=== PATIENT | female | born 1965 | race Caucasian/White ===

== ENCOUNTER 2023-05-30 15:02 | Emergency (ER) | payer SELFPAY ==
[2023-05-30 15:07] VITALS: BP 137/83
--- NOTE | 2023-05-30 15:35 | ED.GENMED ---
History of Present Illness
General
Chief Complaint: Abdominal Pain
Source: patient
Exam Limitations: none
Time Seen by Provider: 05/30/23 15:30
Travel History
Have you had any contact with someone who has COVID-19?: No
Do you have any symptoms of coronavirus? Fever > 100 degrees, chills, cough, shortness of breath, sore throat, loss of taste or smell, muscle aches, or headache?: No
History of Present Illness
History of Present Illness:
Patient presents to the emergency department with lower abdominal pain. Pain is central and radiates to the lower back. Pain started this morning upon waking up. There is no associated urinary symptoms. Feels chills but no fever. No nausea or
vomiting. No constipation or diarrhea. No vaginal discharge or bleeding. Had a similar episode in March that self resolved.
Past History
Past History
ED Past Medical History: None; Negative Cancer, CHF or COPD
ED Past Surgical History: None
Social History
Tobacco: Non-smoker
Alcohol: None
Drug: None
Personal:
Living: with family
Employment: Employed
Family History
Family History: CAD
Phy Exam
Physical Exam
Physical Exam:
GENERAL APPEARANCE: NAD, well developed/ well nourished
EYES lids/conjunctiva normal
EARS/NOSE/THROAT Mucous membranes moist, uvula midline without oral pharyngeal erythema, exudate or swelling
HEAD/NECK normocephalic atraumatic, neck is supple.
RESPIRATORY respiratory effort normal, speaks in full sentences, no accessory muscle use. Lungs clear to auscultation without rhonchi, wheezes, rales
CARDIAC Regular rate and rhythm, no edema.
ABDOMINAL Soft, moderate tenderness to mid lower abdomen. No pulsatile masses on exam, rebound tenderness, Gaming sign or pain over Mcburney's point.
MUSCLES/EXTREMITIES No abnormal range of motion, no swelling.
SKIN Warm, pink and dry. No rashes
NEUROLOGICAL Speech is clear and appropriate. Normal level of consciousness. 5/5 strength in all extremities.
PSYCH Normal mood and affect. Judgement/competence is appropriate
Course
Orders/Labs/Results
Orders:
Orders
05/30/23 16:02
Complete Blood Count/With Diff Urgent
Comprehensive Metabolic Panel Urgent
Lipase Urgent
05/30/23 16:03
Urinalysis Reflex To Culture Urgent
Date Specimen was Collected: 05/30/23
Time Specimen was Collected: 16:02
05/30/23 16:14
CT Abd/pelvis W Iv Cont Urgent
Comment:
Reason For Exam: lower abdominal pain
05/30/23 16:16
0.9% Sodium Chloride 1000 ml [Nss] 1,000 ml IV BOLUS
05/30/23 19:01
MetroNIDAZOLE [Flagyl] 500 mg PO NOW STA
05/30/23 19:02
Ciprofloxacin HCl [Cipro] 500 mg PO ONCE ONE
Abnormal Lab Results
05/30/23 05/30/23
16:02 16:03
WBC 12.1 H 10^3/uL
(4.8-10.8)
Absolute Neuts (auto) 9.6 H 10^3/uL
(1.4-6.5)
Absolute Monos (auto) 1.0 H 10^3/uL
(0.1-0.6)
Neutrophils % 79.4 H %
(42.2-75.2)
Lymphocytes % 11.7 L %
(20.5-51.1)
Sodium 132 L mmol/L
(135-145)
Carbon Dioxide 20 L mmol/L
(22-30)
Urine Ketones 3+ A
(Negative)
05/30/23 16:02
05/30/23 16:02
Vital Signs
Initial and Last Documented VS:
Initial Vital Signs
Temp Pulse Resp BP Pulse Ox
98.7 F 97 16 137/83 99
05/30/23 15:07 05/30/23 15:07 05/30/23 15:07 05/30/23 15:07 05/30/23 15:07
Last Documented Vital Signs
Temp Pulse Resp BP Pulse Ox
98.7 F 97 16 137/83 99
05/30/23 15:07 05/30/23 15:07 05/30/23 15:07 05/30/23 15:07 05/30/23 15:07
MDM/Problems Addressed
Differential Diagnosis Includes:
Differential diagnosis includes urinary tract infection, intra-abdominal infection such as appendicitis or diverticulitis, pelvic infection less likely without vaginal complaints
*Critical Care Note
Total Time (30-74mins, 75-104mins- exclusive of procedures): Not Applicable
Update Note
Update Note:
uncomplicated diverticulitis
will treat with outpatient abx
GI follow up
return precautions given
ED Attending Note
ED Attending Note
Patient seen and examined by attending physician: Yes
-
Portions of this chart may have been created with voice recognition software.� Occasional wrong word or��sound alike� substitutions may have occurred due to the inherent limitations of voice recognition software.
Patient presents to the emergency department with 1 day of lower abdominal pain and chills. She is well-appearing but has significant tenderness to the lower central abdomen. There are no peritoneal signs. Labs indicating a leukocytosis and mild
dehydration with mild hyponatremia and ketonuria. Plan normal saline bolus for rehydration, CT abdomen pelvis to rule out intra-abdominal emergency patient declining any pain medicine at this time.
Discharge Plan
Departure
Patient Disposition: Home (Routine Discharge)
Date of Disposition: 05/30/23
Time of Disposition: 19:03
Patient with high blood pressure during this ER visit?: No
Condition: Good
Covid-19: Not Applicable
Discharge Problem:
Diverticulitis
Instructions: Diverticulitis (DC)
Prescriptions:
New
ciprofloxacin HCl 500 mg tablet
500 mg PO BID Qty: 10 0RF
metronidazole 500 mg tablet
500 mg PO TID Qty: 15 0RF
Referrals:
Peterson Felix MD [Active] - Next open appointment (uncomplicated diverticulitis)
NONE,* [Family Provider] -
Interventions
Interventions:
*Risk Screen - Suicide Last Done: 05/30/23 15:03
*General Assessment Last Done: 05/30/23 15:03
*Neglect/Abuse Screening Last Done: 05/30/23 15:03
*ED COVID-19 Vaccine History Last Done: 05/30/23 15:03
MH-Xrfepj-Gwkwjdiwmb Assessment Last Done: 05/30/23 16:31
Discharge Date and Time
Print Language: SWEDISH
[2023-05-30 16:11] LABS: % Basophils 0.2 % (0-2); % Eosinophils 0.2 % (0-6); % Immature Granulocytes 0.2 % (0-0.5); % Lymphocytes 11.7 % (20.5-51.1); % Monocytes 8.3 % (1.7-9.3); % Neutrophils 79.4 % (42.2-75.2); Absolute Lymphocytes 1.4 10^3/uL (1.2-3.4); Absolute Neutrophils 9.6 10^3/uL (1.4-6.5); Hematocrit 39.2 % (37.0-47.0); Hemoglobin 13.5 g/dL (12.0-16.0); Mean Corp Hgb Conc. 34.4 g/dL (33.0-37.0); Mean Corpuscular Hgb 29.4 pg (27.0-31.0); Mean Corpuscular Volume 85.4 fL (81.0-99.0); Nucleated Red Blood Cells % 0 %; Platelet Count 299 10^3/uL (130-400); Red Blood Cell Count 4.59 10^6/uL (4.20-5.40); Red Cell Dist. Width 12.7 % (11.5-14.5); White Blood Cell Count 12.1 10^3/uL (4.8-10.8)
[2023-05-30 16:11] LABS: Urine Albumin Negative (Neg - Trace); Urine Bilirubin Negative (Negative); Urine Character Clear (Clear); Urine Color Straw; Urine Glucose Negative (Negative); Urine Ketone 3+ (Negative); Urine Leukocyte Negative (Negative); Urine Nitrite Negative (Negative); Urine Occult Blood Negative (Negative); Urine Urobilinogen Negative (Neg - 1+)
[2023-05-30] MEDS: NSS 1000 IV (16:24)
[2023-05-30 16:25] LABS: ALT (SGPT) 22 U/L (0-35); AST (SGOT) 25 U/L (14-36); Albumin 4.3 g/dl (3.5-5.0); Alkaline Phosphatase 123 U/L (38-126); Blood Urea Nitrogen 12 mg/dl (7-17); Calcium 9.5 mg/dl (8.4-10.2); Carbon Dioxide 20 mmol/L (22-30); Chloride 101 mmol/L (98-107); Glucose 83 mg/dl (70-99); Lipase 43 U/L (23-300); Potassium 4.1 mmol/L (3.5-5.1); Sodium 132 mmol/L (135-145); Total Protein 6.9 g/dl (6.3-8.2); eGFR > 60.00
[2023-05-30] MEDS: CIPRO 500 MG PO (19:21)
[2023-05-30] MEDS: FLAGYL 500 MG PO (19:21)
[2023-05-30 19:34] VITALS: BP 129/62
[2023-05-30 19:35] VITALS: BP 129/62
== END 2023-05-30 19:35 | disposition home or self-care (01) ==
LOC: EMR 15:02
PROVIDERS: EMERGENCY PHYSICIAN Emergency Medicine
DX: K57.32 Diverticulitis of large intestine without perforation or abscess without bleeding (principal); E86.0 Dehydration; E87.1 Hypo-osmolality and hyponatremia
CPT/HCPCS: 99285; 96360; 74177; 80053; 81003; 83690; 85025; Q9967

== ENCOUNTER → 2023-08-16 06:19 | Day surgery (SDC) | payer SELFPAY | LOC: GI 06:19 | PROVIDERS: ATTENDING PHYSICIAN Internal Medicine Gastroenterology | DX: K51.40 Inflammatory polyps of colon without complications (principal); K57.30 Diverticulosis of large intestine without perforation or abscess without bleeding; K64.8 Other hemorrhoids; Z87.19 Personal history of other diseases of the digestive system | CPT/HCPCS: 45385; 45380; 88305 ==

== ENCOUNTER → 2024-06-10 11:25 | Outpatient (REF) | payer SELFPAY | LOC: RAD 11:25 | PROVIDERS: ATTENDING PHYSICIAN Family Medicine | DX: R05.3 Chronic cough (principal) | CPT/HCPCS: 71046 ==